=== PATIENT | male | born 1990 | race Caucasian/White ===

== ENCOUNTER 2024-02-29 17:22 | Emergency (ER) | payer MEDICAID, OTHER, SELFPAY ==
[~2024-02-29] VITALS: Ht 175.3 cm; Wt 118.2 kg
[2024-02-29 17:54] LABS: BASO # 0.1 10^3/uL (0.0-0.2); BASO % 0.8 % (0.0-1.0); EOS # 0.1 10^3/uL (0.0-0.5); EOS % 0.6 % (0.0-3.0); HEMATOCRIT 47.7 % (42.0-52.0); HEMOGLOBIN 16.7 g/dl (13.5-17.5); LYMPH # 2.8 10^3/uL (1.5-5.0); LYMPH % 33.7 % (24.0-44.0); MEAN CORPUSCULAR HEMOGLOBIN 31.4 pg (27.0-33.0); MEAN CORPUSCULAR VOLUME 89.7 fl (80.0-96.0); MONO # 0.7 10^3/uL (0.0-0.8); MONO % 8.8 % (2.0-8.0); NEUTROPHILS # 4.6 10^3/uL (1.5-8.5); NEUTROPHILS % 55.7 % (36.0-66.0); PLATELET COUNT, AUTOMATED 283 10^3/uL (150-450); RED BLOOD COUNT 5.32 10^6/uL (4.30-6.10); WHITE BLOOD COUNT 8.3 10^3/uL (4.0-10.0)
[2024-02-29 18:07] LABS: INR 1.01
[2024-02-29 18:22] LABS: LIPASE 35 U/L (12-53)
[2024-02-29 18:48] LABS: ALBUMIN 4.6 G/DL (3.2-5.2); ALKALINE PHOSPHATASE 73 U/L (46-116); ALT/SGPT 34 U/L (7.0-40); AST/SGOT 20 U/L (<34); BILIRUBIN,DIRECT 0.4 MG/DL (<0.4); BILIRUBIN,TOTAL 1.5 MG/DL (0.3-1.2); BLOOD UREA NITROGEN 15 MG/DL (9-23); CALCIUM LEVEL 9.6 MG/DL (8.5-10.1); CARBON DIOXIDE LEVEL 24 MMOL/L (20-31); CHLORIDE LEVEL 107 MMOL/L (98-107); CREATININE FOR GFR 0.85 MG/DL (0.70-1.30); GLOMERULAR FILTRATION RATE > 60.0 (>60); GLUCOSE, FASTING 122 MG/DL (60-100); POTASSIUM SERUM 3.8 MMOL/L (3.5-5.1); SODIUM LEVEL 138 MMOL/L (136-145); TOTAL PROTEIN 7.3 G/DL (5.7-8.2)
[2024-02-29] MEDS: ACETAMINOPHEN *IV* 1,000 MG in IV 1 EA IV ONE (20:55)
[2024-02-29] MEDS ORDERED: ISOVUE-370 76% 100ML VIAL As Ordered ONE (21:01)
[2024-02-29] MEDS ORDERED: MED REC IN PROGRESS XX SCH (23:05)
[2024-03-01] MEDS ORDERED: BENA25CA4 PO (01:19)
[2024-03-01] MEDS ORDERED: ALL10TAB2 PO (01:19)
[2024-03-01] MEDS ORDERED: HOME MED LIST COMPLETE! XX SCH (01:20)
[2024-03-01] MEDS ORDERED: PRED20TA PO (01:22)
[2024-03-01] MEDS: predniSONE 20 MG TAB PO ONE (01:29)
[2024-03-01 01:33] VITALS: BP 151/96; TEMP 97.8; O2SAT 96
== END 2024-03-01 01:41 | disposition home or self-care (01) ==
LOC: M ED 17:22 → EDBD 17:22 → M ED 03-01 01:41
DX: K52.9 Noninfective gastroenteritis and colitis, unspecified (principal); K21.9 Gastro-esophageal reflux disease without esophagitis; I10 Essential (primary) hypertension; F17.290 Nicotine dependence, other tobacco product, uncomplicated; F12.10 Cannabis abuse, uncomplicated; F10.10 Alcohol abuse, uncomplicated; Z88.2 Allergy status to sulfonamides; Z79.2 Long term (current) use of antibiotics; Z79.52 Long term (current) use of systemic steroids
CPT/HCPCS: 74177; 80048; 80076; 83690; 85025; 85610; 86850; 86900; 86901; 87507; 96365; 99284; J0131; J7512; Q9967